=== PATIENT | male | born 1990 ===

== ENCOUNTER 2017-06-03 12:58 | Emergency (ER) | payer BC, OTHER ==
--- NOTE | 2017-06-03 15:05 | UC ---
Back Pain HPI - HPI Summary HPI Summary: 27 yo male with LBP x 4 days very minimal the first two days worsened the past 2 days movement increases pain aleve or advil relief the pain no leg pain no hx CA no bowel or bladder dysfunction - History of Current Complaint Chief Complaint: UCBackPain Stated Complaint: BACK PAIN Time Seen by Provider: 06/03/17 14:46 Hx Obtained From: Patient Onset/Duration: Gradual Onset, Lasting Days Timing: Constant Severity Initially: Mild Severity Currently: Mild Pain Intensity: 4 - worse with movement Back Pain: Is Diffuse - lower Character: Aching, Throbbing, Spasmodic Aggravating: Movement, Lifting, Bending Alleviating: Rest, OTC Meds Associated Signs And Symptoms: Positive: Negative - Allergies/Home Medications Allergies/Adverse Reactions: Allergies Allergy/AdvReac Type Severity Reaction Status Date / Time No Known Allergies Allergy Verified 06/03/17 13:18 Home Medications: Home Medications Ibuprofen [Advil] 600 mg PO 06/03/17 [History] PMH/Surg Hx/FS Hx/Imm Hx Previously Healthy: Yes - Surgical History Surgical History: None - Family History Known Family History: Positive: Unknown - HE IS ADOPTED - Social History Alcohol Use: None Substance Use Type: None Smoking Status (MU): Never Smoked Tobacco Review of Systems Constitutional: Negative Skin: Negative Eyes: Negative ENT: Negative Respiratory: Negative Cardiovascular: Negative Gastrointestinal: Negative Genitourinary: Negative Motor: Negative Neurovascular: Negative Musculoskeletal: Myalgia Neurological: Negative Psychological: Negative Is Patient Immunocompromised?: No All Other Systems Reviewed And Are Negative: Yes Physical Exam Triage Information Reviewed: Yes Appearance: Well-Appearing, No Pain Distress, Well-Nourished Vital Signs: Initial Vital Signs Temp 98.3 F 06/03/17 13:15 Pulse 83 06/03/17 13:15 Resp 18 06/03/17 13:15 BP 158/100 06/03/17 13:15 Pulse Ox 100 06/03/17 13:15 Vital Signs Reviewed: Yes Eyes: Positive: Conjunctiva Clear ENT: Positive: Hearing grossly normal. Negative: Nasal congestion, Nasal drainage, Trismus, Muffled/hoarse voice Dental: Negative: Dental Fracture @, Abscess @ Neck: Positive: Supple, Nontender, No Lymphadenopathy Respiratory: Positive: Lungs clear, Normal breath sounds, No respiratory distress, No accessory muscle use Cardiovascular: Positive: RRR, No Murmur, Pulses Normal Abdomen Description: Positive: Nontender, No Organomegaly, Soft. Negative: CVA Tenderness (R), CVA Tenderness (L) Musculoskeletal: Positive: ROM Intact, No Edema Neurological: Positive: Alert, Muscle Tone Normal Psychological Exam: Normal Skin Exam: Normal Back Pain Course/Dx - Differential Dx/Diagnosis Provider Diagnoses: acute lumbar strain Discharge - Discharge Plan Condition: Stable Disposition: HOME Patient Education Materials: Low Back Strain (ED) Forms: *Work Release Referrals: Ed Jimenez MD [Primary Care Provider] - Additional Instructions: recheck this weekend if not better ibuprofen 600mg 4x day with food for pain YOUR BP WAS HIGH HERE AND NEEDS RECHECKING You need to reestablish with your MD and get it followed May be elevated due to pain
== END 2017-06-03 15:40 | disposition home or self-care (01) ==
LOC: UCEAST 12:58
DX: S39.012A Strain of muscle, fascia and tendon of lower back, initial encounter (principal); Y92.9 Unspecified place or not applicable
CPT/HCPCS: 99201; G0463

== ENCOUNTER 2018-03-08 20:18 | Emergency (ER) | payer OTHER, BC ==
[2018-03-08 20:43] VITALS: BP 153/101
[2018-03-08] MEDS ORDERED: Ondansetron ODT TAB* 4 MG PO ONE ×2 (20:49→21:09)
--- NOTE | 2018-03-08 21:09 | UC ---
Abdominal Pain Male HPI - HPI Summary HPI Summary: ONSET OF NAUSEA AND VOMITING 2-1/2 HOURS AGO. PATIENT STATES HE HAS VOMITED 11 TIMES. NO FEVER OR DIARRHEA. NO ABDOMINAL PAIN. NO HEMATEMESIS. ATE LUNCH AT [facility] [facility] TODAY. NO NEW MEDICINES OR RECENT TRAVEL. ALSO REPORTS THAT FOR A WEEK AND A HALF OR SO HE HAS BEEN HAVING ONCE DAILY EPISODES OF DRY HEAVING THAT SEEM TO BE RELATED TO ANXIETY OR OCCUR AFTER EATING. PATIENT STATES HE HAS A BIG PRESENTATION COMING UP AT WORK AND SO HAS BEEN STRESSED ABOUT THIS. HE HAS BEEN ACTIVELY WATCHING HIS AMOUNT OF FOOD INTAKE WHICH SEEMS TO BE HELPING HE STATES HE OFTEN OVEREATS. HE ADMITS THAT HIS SYMPTOMS TODAY DO NOT FEEL THE SAME HOWEVER WANTED TO MENTION THIS IN CASE IT WAS RELATED. - History of Current Complaint Chief Complaint: UCGI Stated Complaint: VOMITING Time Seen by Provider: 03/08/18 20:48 Hx Obtained From: Patient Onset/Duration: Sudden Onset, Lasting Hours, Still Present Timing: Constant Severity Initially: Moderate Severity Currently: Moderate Pain Intensity: 0 Pain Scale Used: 0-10 Numeric Aggravating Factor(s): Nothing Alleviating Factor(s): Nothing Associated Signs And Symptoms: Positive: Nausea, Vomiting. Negative: Back Pain , Urinary Symptoms, Diarrhea - Allergies/Home Medications Allergies/Adverse Reactions: Allergies Allergy/AdvReac Type Severity Reaction Status Date / Time No Known Allergies Allergy Verified 03/08/18 20:43 PMH/Surg Hx/FS Hx/Imm Hx Previously Healthy: Yes - Surgical History Surgical History: None - Family History Known Family History: Positive: Unknown - HE IS ADOPTED - Social History Alcohol Use: None Substance Use Type: None Smoking Status (MU): Never Smoked Tobacco Review of Systems Constitutional: Negative Respiratory: Negative Cardiovascular: Negative Gastrointestinal: Vomiting, Nausea All Other Systems Reviewed And Are Negative: Yes Physical Exam Triage Information Reviewed: Yes Appearance: Well-Appearing, No Pain Distress, Well-Nourished Vital Signs: Initial Vital Signs Temp 98.6 F 03/08/18 20:37 Pulse 98 03/08/18 20:37 Resp 16 03/08/18 20:37 BP 153/101 03/08/18 20:37 Pulse Ox 100 03/08/18 20:37 Vital Signs Reviewed: Yes Eyes: Positive: Conjunctiva Clear ENT: Positive: Hearing grossly normal, Pharynx normal Neck: Positive: Supple Respiratory Exam: Normal Cardiovascular Exam: Normal Abdomen Description: Positive: Nontender, Soft, Other: - NO RIGIDITY OR REBOUND. Negative: CVA Tenderness (R), CVA Tenderness (L), Distended, Guarding Bowel Sounds: Positive: Present Musculoskeletal: Positive: No Edema Neurological: Positive: Alert Psychological: Positive: Age Appropriate Behavior Skin: Negative: rashes Abd Pain Male Course/Dx - Course Course Of Treatment: RECENT EPISODES OF DRY HEAVING DO NOT SEEM TO BE RELATED TO TODAYS ACUTE NAUSEA/VOMITING. MORE LIKELY RELATED TO ACUTE ANXIETY AND OVER EATING. WILL CHECK CBC AND CMP AND HAVE ADVISED PT TO F/U WITH PCP IF SX PERSIST FURTHER EVALUATION MAY BE NECESSARY. PT DECLINES URINE TESTING TODAY. - Differential Dx/Clinical Impression Provider Diagnoses: ACUTE NAUSEA/VOMITING Discharge - Sign-Out/Discharge Documenting (check all that apply): Discharge/Admit/Transfer - Discharge Plan Condition: Stable Disposition: HOME Prescriptions: Ondansetron ODT TAB* [Zofran Odt TAB*] 4 mg PO Q6H PRN #20 tab.odt PRN Reason: Nausea/Vomiting Patient Education Materials: Acute Nausea and Vomiting (ED), Food Poisoning (ED ) Referrals: Ed Jimenez MD [Primary Care Provider] - If Needed Additional Instructions: SUSPECT FOOD POISONING VS. VIRAL GASTROENTERITIS. TAKE ZOFRAN FOR NAUSEA. IF 4MG NOT EFFECTIVE OKAY TO TAKE 8MG BUT THEN CAN ONLY TAKE IT EVERY 8 HRS. Give clear liquids. Examples include Pedialyte, Gatorade, clear broth, juices, flat sodas, and jello water. Medications may be prescribed by the physician for special cases. Once tolerated, the clear liquid diet may be supplemented with rice, cereal, toast, applesauce, or bananas. Call the physician or go to the hospital if vomiting increases or blood appears in the bowel movement or vomitus; if you fail to improve, or if signs of dehydration occur (tongue and mouth become dry, lethargy). ENSURE ADEQUATE HYDRATION. CLEAR LIQUIDS, BLAND DIET. AVOID CAFFEINE, DAIRY, GREASY, SPICY FOODS. ONCE YOU ARE TOLERATING CLEAR LIQUIDS YOU CAN ADVANCE TO SIMPLE, BLAND FOODS. IF YOUR EPISODES OF DRY HEAVING DO NOT RESOLVE F/U WITH YOUR PCP FOR FURTHER EVALUATION. BLOOD COUNT AND METABOLIC PANEL DRAWN TODAY. - Billing Disposition and Condition Condition: STABLE Disposition: Home
[2018-03-09 11:10] LABS: ABS Basophils 0.1 10^3/ul (0-0.2); ABS Eosinophils 0 10^3/ul (0-0.6); ABS Monocytes 0.4 10^3/ul (0-0.8); ABS Nucleated RBC 0 10^3/ul; Eosinophil % 0.4 % (0-6); Hematocrit 46 % (42-52); Hemoglobin 16.3 g/dl (14.0-18.0); Lymphocyte % 23.6 % (25-47); Mean Corpuscular HGB Conc 35 g/dl (31-36); Mean Corpuscular Hemoglobin 31 pg (27-31); Mean Corpuscular Volume 86 fL (80-94); Mean Platelet Volume 9.6 um3 (7.4-10.4); Nucleated Red Blood Cells % 0.3; Platelet Count 235 10^3/ul (150-450); Red Blood Count 5.36 10^6/ul (4.00-5.40); Red Cell Distribution Width 12 % (10.5-15); White Blood Count 8.5 10^3/ul (3.5-10.8)
[2018-03-09 11:38] LABS: EGFR Non-African American 102.8 (>60)
== END 2018-03-08 21:45 | disposition home or self-care (01) ==
LOC: UCEAST 20:18
DX: R11.2 Nausea with vomiting, unspecified (principal)
CPT/HCPCS: 36415; 80053; 85025; 99212; A9270-GY; G0463